=== PATIENT | female | born 1960 | race Caucasian/White ===

== ENCOUNTER → 2016-10-19 | Outpatient (CLI) | payer OTHER ==
--- NOTE | 2016-10-20 07:47 | MM ---
Reason for exam: screening (asymptomatic). Baseline mammogram. History: Patient is postmenopausal. Family history of breast cancer in paternal aunt. Physical Findings: Nurse did not find any significant physical abnormalities on exam. MG Screening Mammo w CAD Bilateral CC and MLO view(s) were taken. There are scattered fibroglandular densities. There is no discrete abnormality. These results were verbally communicated with the patient and result sheet given to the patient on 10/19/16. ASSESSMENT: Benign, BI-RAD 2 RECOMMENDATION: Routine screening mammogram of both breasts in 1 year.
== END | disposition home or self-care (01) ==
LOC: RADMAMWWP 12:51
PROVIDERS: ATTEND Internal Medicine
DX: Z12.31 Encounter for screening mammogram for malignant neoplasm of breast (principal)

== ENCOUNTER 2019-03-16 16:05 | Emergency (ER) | payer OTHER ==
[2019-03-16] MEDS ORDERED: SODIUM CHLORIDE 0.9% 1,000 ML IV STA (16:39)
--- NOTE | 2019-03-16 16:43 | ED ---
Neuro HPI - General Chief Complaint: Neuro Symptoms/Deficit Stated Complaint: High BP,Confusion,Headache Time Seen by Provider: 03/16/19 16:23 Source: patient, RN notes reviewed, old records reviewed Mode of arrival: ambulatory Limitations: no limitations - History of Present Illness Is the patient presenting with stroke symptoms?: Yes -: hour(s) Initial Comments: This is a 58-year-old female the ER for altered mental status expressive aphasia difficulty with speech. Patient also noted of high blood pressure today per family patient brought in by her family after she was sent home from work after being unable to do her daily tasks at work. 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 She presents for family's house and they noticed that her speech was not appropriate although is improving symptoms. Her house. Also elevated blood pressure and sugar blood sugar which was normal she is having occasional headache in the noticed a headache this morning. She denies any traumas recent fevers. Patient takes no medications denies drug or alcohol abuse Location: speech, other (Expressive aphasia) History of same: Yes Place: home Severity: moderate Quality: weak Improves With: none Worsens With: none On Anticoagulants: No Context: sudden onset Associated Symptoms: confusion, weakness Treatments Prior to Arrival: none - Related Data Home Medications: Home Medications Medication Instructions Recorded Confirmed Cetirizine HCl [Zyrtec] 10 mg PO DAILY 03/16/19 03/16/19 Allergies/Adverse Reactions: Allergies Allergy/AdvReac Type Severity Reaction Status Date / Time No Known Allergies Allergy Verified 03/16/19 18:14 Review of Systems ROS Statement: Those systems with pertinent positive or pertinent negative responses have been documented in the HPI. ROS Other: All systems not noted in ROS Statement are negative. General Exam Limitations: no limitations General appearance: alert, in no apparent distress Head exam: Present: atraumatic, normocephalic, normal inspection Eye exam: Present: normal appearance, PERRL, EOMI. Absent: scleral icterus, conjunctival injection, periorbital swelling ENT exam: Present: normal exam, mucous membranes moist Neck exam: Present: normal inspection. Absent: tenderness, meningismus, lymphadenopathy Respiratory exam: Present: normal lung sounds bilaterally. Absent: respiratory distress, wheezes, rales, rhonchi, stridor Cardiovascular Exam: Present: regular rate, normal rhythm, normal heart sounds. Absent: systolic murmur, diastolic murmur, rubs, gallop, clicks GI/Abdominal exam: Present: soft, normal bowel sounds. Absent: distended, tenderness, guarding, rebound, rigid Extremities exam: Present: normal inspection, full ROM, normal capillary refill. Absent: tenderness, pedal edema, joint swelling, calf tenderness Back exam: Present: normal inspection Neurological exam: Present: alert, oriented X3, CN II-XII intact Psychiatric exam: Present: normal affect, normal mood Skin exam: Present: warm, dry, intact, normal color. Absent: rash Stroke MDM - Lab Data Result diagrams: 03/16/19 16:40 03/16/19 16:40 Lab Results 03/16/19 03/16/19 03/16/19 Range/Units 16:40 16:40 16:40 WBC 15.3 H (3.8-10.6) k/uL RBC 5.08 (3.80-5.40) m/uL Hgb 15.2 (11.4-16.0) gm/dL Hct 48.0 H (34.0-46.0) % MCV 94.6 (80.0-100.0) fL MCH 29.9 (25.0-35.0) pg MCHC 31.6 (31.0-37.0) g/dL RDW 13.3 (11.5-15.5) % Plt Count 525 H (150-450) k/uL Neutrophils % 70 % Lymphocytes % 21 % Monocytes % 4 % Eosinophils % 2 % Basophils % 2 % Neutrophils # 10.7 H (1.3-7.7) k/uL Lymphocytes # 3.3 (1.0-4.8) k/uL Monocytes # 0.6 (0-1.0) k/uL Eosinophils # 0.2 (0-0.7) k/uL Basophils # 0.4 H (0-0.2) k/uL PT 9.5 (9.0-12.0) sec INR 0.9 (<1.2) APTT 26.2 (22.0-30.0) sec Sodium 142 (137-145) mmol/L Potassium 4.5 (3.5-5.1) mmol/L Chloride 105 (98-107) mmol/L Carbon Dioxide 27 (22-30) mmol/L Anion Gap 10 mmol/L BUN 9 (7-17) mg/dL Creatinine 0.83 (0.52-1.04) mg/dL Est GFR (CKD-EPI)AfAm 90 (>60 ml/min/1.73 sqM) Est GFR (CKD-EPI)NonAf 78 (>60 ml/min/1.73 sqM) Glucose 97 (74-99) mg/dL POC Glucose (mg/dL) (75-99) mg/dL POC Glu Senior Scientist ID Calcium 10.2 (8.4-10.2) mg/dL Total Bilirubin 0.3 (0.2-1.3) mg/dL AST 29 (14-36) U/L ALT 28 (9-52) U/L Alkaline Phosphatase 100 (38-126) U/L Troponin I (0.000-0.034) ng/mL Total Protein 8.1 (6.3-8.2) g/dL Albumin 4.6 (3.5-5.0) g/dL 03/16/19 03/16/19 Range/Units 16:40 16:49 WBC (3.8-10.6) k/uL RBC (3.80-5.40) m/uL Hgb (11.4-16.0) gm/dL Hct (34.0-46.0) % MCV (80.0-100.0) fL MCH (25.0-35.0) pg MCHC (31.0-37.0) g/dL RDW (11.5-15.5) % Plt Count (150-450) k/uL Neutrophils % % Lymphocytes % % Monocytes % % Eosinophils % % Basophils % % Neutrophils # (1.3-7.7) k/uL Lymphocytes # (1.0-4.8) k/uL Monocytes # (0-1.0) k/uL Eosinophils # (0-0.7) k/uL Basophils # (0-0.2) k/uL PT (9.0-12.0) sec INR (<1.2) APTT (22.0-30.0) sec Sodium (137-145) mmol/L Potassium (3.5-5.1) mmol/L Chloride (98-107) mmol/L Carbon Dioxide (22-30) mmol/L Anion Gap mmol/L BUN (7-17) mg/dL Creatinine (0.52-1.04) mg/dL Est GFR (CKD-EPI)AfAm (>60 ml/min/1.73 sqM) Est GFR (CKD-EPI)NonAf (>60 ml/min/1.73 sqM) Glucose (74-99) mg/dL POC Glucose (mg/dL) 89 (75-99) mg/dL POC Glu Senior Scientist ID Radha Ghotra Calcium (8.4-10.2) mg/dL Total Bilirubin (0.2-1.3) mg/dL AST (14-36) U/L ALT (9-52) U/L Alkaline Phosphatase (38-126) U/L Troponin I <0.012 (0.000-0.034) ng/mL Total Protein (6.3-8.2) g/dL Albumin (3.5-5.0) g/dL - NIH Stroke Scale 1a. Level of Consciousness: (0) alert 1b. LOC Questions: (0) answers correctly 1c. LOC Commands: (0) performs tasks correctly 2. Best Gaze: (0) normal 3. Visual: (0) no visual loss 4. Facial Palsy: (0) normal symmetrical movement 5a. Motor Arm Left: (0) no drift 5b. Motor Arm Right: (0) no drift 6a. Motor Leg Left: (0) no drift 6b. Motor Leg Right: (0) no drift 7. Limb Ataxia: (0) absent 8. Sensory: (0) normal 9. Best Language: (1) mild/moderate aphasia 10. Dysarthria: (1) mild/moderate dysarthria 11. Extinction/Inattention: (0) no abnormality - Thrombolytic Inclusion/Exclusion Thrombolytic Exclusion Criteria: Symptom Onset > 4.5 Hours Thrombolytic Inclusion Criteria: Glucose of 50-400mg/dl - Medical Decision Making 58 female the ER for evaluation she does have positive CVA. Patient will be admitted for evaluation and treatment by neurology - Radiology Data Radiology results: report reviewed (CT brain does show some evidence of a CVA left frontal CTA does show some hemodynamic stenosis 80%), image reviewed - EKG Data -: EKG Interpreted by Me (EKG shows sinus rhythm rate of 73, FL 1:30, QRS 80, QTC 429) Past Medical History Past Medical History: No Reported History History of Any Multi-Drug Resistant Organisms: None Reported Past Surgical History: No Surgical Hx Reported Past Psychological History: No Psychological Hx Reported Smoking Status: Current some day smoker Past Alcohol Use History: Occasional Past Drug Use History: None Reported Course Vital Signs 03/16/19 03/16/19 03/16/19 16:18 18:33 18:42 Temperature 97.9 F Pulse Rate 85 71 68 Respiratory 20 16 16 Rate Blood Pressure 191/87 161/74 165/77 O2 Sat by Pulse 98 97 97 Oximetry - Reevaluation(s) Reevaluation #1: 03/16/19 18:24 medical record is reviewed Reevaluation #2: 03/16/19 18:24 patient unable to have accurate known onset and no TPA candidate secondary to onset as well as NIH of 0 Reevaluation #3: 03/16/19 20:[address] Yepez he will accept patient transfer at [facility] Critical Care Time Critical Care Time: Yes Total Critical Care Time: 31 Disposition Clinical Impression: Cerebrovascular accident (CVA) Disposition: OTHER INSTITUTION NOT DEFINED Condition: Fair Is patient prescribed a controlled substance at d/c from ED?: No Referrals: Kenyon Hoffmann MD [Primary Care Provider] - 1-2 days - Out of Hospital Transfer - Req. Specs Out of Hospital Transfer - Requested Specifics: Other Emergency Center ([facility])
[2019-03-16 16:51] LABS: Glucose,Whole Blood 89 mg/dL (75-99)
--- NOTE | 2019-03-16 17:12 | CT ---
EXAMINATION TYPE: CT brain wo con for TPA DATE OF EXAM: 03/16/2019 COMPARISON: None HISTORY: Confusion. CT DLP: mGycm Automated exposure control for dose reduction was used. FINDINGS: Ventricles of normal size. There is no mass effect nor midline shift. There is no sign of intracrania l hemorrhage. The calvarium is intact. There is a subtle 2 cm area of cortical hypodensity left posterior frontal lobe. IMPRESSION: HYPODENSE LEFT FRONTAL LOBE CORTICAL AREA COULD BE AN ACUTE INFARCT.
[2019-03-16 17:28] LABS: Basophils # (A) 0.4 k/uL (0-0.2); Basophils % (A) 2 %; Eosinophils # (A) 0.2 k/uL (0-0.7); Eosinophils % (A) 2 %; HGB 15.2 gm/dL (11.4-16.0); Lymphocytes # (A) 3.3 k/uL (1.0-4.8); Lymphocytes % (A) 21 %; MCH 29.9 pg (25.0-35.0); MCHC 31.6 g/dL (31.0-37.0); MCV 94.6 fL (80.0-100.0); Mean Platelet Volume 6.8; Monocytes # (A) 0.6 k/uL (0-1.0); Monocytes % (A) 4 %; Neutrophils # (A) 10.7 k/uL (1.3-7.7); Neutrophils % (A) 70 %; Platelet Count 525 k/uL (150-450); RBC 5.08 m/uL (3.80-5.40); RDW 13.3 % (11.5-15.5); WBC 15.3 k/uL (3.8-10.6)
[2019-03-16 17:33] LABS: Albumin 4.6 g/dL (3.5-5.0); Calcium 10.2 mg/dL (8.4-10.2); Potassium 4.5 mmol/L (3.5-5.1); Total Bilirubin 0.3 mg/dL (0.2-1.3); Total Protein 8.1 g/dL (6.3-8.2)
--- NOTE | 2019-03-16 17:39 | CT ---
EXAMINATION TYPE: CT angio head neck DATE OF EXAM: 03/16/2019 HISTORY: Confusion COMPARISON: None CT DLP: 1570.5 mGycm. Automated Exposure Control for Dose Reduction was Utilized. TECHNIQUE: CTA scan of the neck is performed with IV Contrast, patient injected with 65 mL of Isovue 370, axial images are obtained, coronal and sagittal reformatted images are reviewed. Three-D recons tructed images are created on an independent workstation and reviewed. FINDINGS: There is normal branching pattern of the great vessels on the aortic arch. There is bilateral arteria l flow in the subclavian arteries. There is bilateral arterial flow in the vertebral arteries which a re fairly symmetric. There is arterial flow in the common internal and external carotid arteries bila terally. There is wide patency of the right carotid artery bifurcation. On the left side there is approximate 80% stenosis of the origin of the left internal carotid artery. There is no evidence of carotid or vertebral artery aneurysm or dissection. There is arterial flow in the vertebrobasilar artery system. There is arterial flow in the anterior m iddle and posterior cerebral arteries. I see no aneurysm or neovascularity. There is no mass effect. There is normal contrast opacification of the venous sinuses. IMPRESSION: There is approximate 80% stenosis at the origin of the left internal carotid artery. There is hemodyn amic stenosis. No arterial dissection. No intracranial angiographic abnormality.
[2019-03-16 17:43] LABS: INR 0.9 (<1.2); Partial Thromboplastin Time 26.2 sec (22.0-30.0); Prothrombin Time 9.5 sec (9.0-12.0)
[2019-03-16] MEDS ORDERED: LABETALOL 5 MG/ML VIAL MDV IVP STA (18:19)
[2019-03-16] MEDS ORDERED: TICAGRELOR 90 MG TAB PO STA (20:04)
[2019-03-16 20:21] VITALS: BP 147/79; PULSE 66; RESP 18
[2019-03-16 22:15] VITALS: TEMP 98.2
== END 2019-03-16 21:26 | disposition other institution (70) ==
LOC: EC 16:05
DX: I63.9 Cerebral infarction, unspecified (principal); R29.702 NIHSS score 2; F17.200 Nicotine dependence, unspecified, uncomplicated; Z79.899 Other long term (current) drug therapy
CPT/HCPCS: 36415; 93005; 80053; 84484; 85025; 85610; 85730; 70496; 70450; 70498; 99291; 96360; 96361 ×2; Q9967

== ENCOUNTER → 2020-01-16 | Outpatient (CLI) | payer OTHER ==
--- NOTE | 2020-01-18 09:25 | MM ---
Reason for exam: screening (asymptomatic). Last mammogram was performed 3 years and 3 months ago. History: Patient is postmenopausal. Family history of breast cancer in 2 paternal aunts. Physical Findings: A clinical breast exam by your physician is recommended on an annual basis and results should be correlated with mammographic findings. MG 3D Screening Mammo W/Cad Bilateral CC and MLO view(s) were taken. Prior study comparison: October 19, 2016, bilateral MG screening mammo w CAD. There are scattered fibroglandular densities. No significant changes when compared with prior studies. ASSESSMENT: Negative, BI-RAD 1 RECOMMENDATION: Routine screening mammogram of both breasts in 1 year.
== END | disposition home or self-care (01) ==
LOC: RADMAMWWP 14:50
PROVIDERS: ATTEND Family Medicine
DX: Z12.31 Encounter for screening mammogram for malignant neoplasm of breast (principal)
CPT/HCPCS: 77063; 77067

== ENCOUNTER → 2021-09-08 | Outpatient (CLI) | payer OTHER ==
--- NOTE | 2021-09-09 08:14 | MM ---
Reason for exam: screening (asymptomatic). Last mammogram was performed 1 year and 8 months ago. History: Patient is postmenopausal. Family history of breast cancer in 2 paternal aunts. Physical Findings: A clinical breast exam by your physician is recommended on an annual basis and results should be correlated with mammographic findings. MG Screening Mammo w CAD Bilateral CC and MLO view(s) were taken. Prior study comparison: January 16, 2020, bilateral MG 3d screening mammo w/cad. October 19, 2016, bilateral MG screening mammo w CAD. There are scattered fibroglandular densities. There is no discrete abnormality. ASSESSMENT: Negative, BI-RAD 1 RECOMMENDATION: Routine screening mammogram of both breasts in 1 year.
== END | disposition home or self-care (01) ==
LOC: RADMAMWWP 10:14
PROVIDERS: ATTEND Internal Medicine Geriatric Medicine
DX: Z12.31 Encounter for screening mammogram for malignant neoplasm of breast (principal); Z78.0 Asymptomatic menopausal state; Z80.3 Family history of malignant neoplasm of breast
CPT/HCPCS: 77067

== ENCOUNTER → 2022-10-02 | Outpatient (CLI) | payer OTHER ==
--- NOTE | 2022-10-02 12:59 | US ---
EXAMINATION TYPE: US carotid duplex BILAT DATE OF EXAM: 10/02/2022 COMPARISON: 03/16/19 CTA neck CLINICAL INDICATION: Female, 62 years old with history of I65.22 OCCLUSION AND STENOSIS OF LEFT CAROT ID FELICIA; pt. complains of more frequent headaches, stent put into lt prox ICA TECHNIQUE: Carotid duplex ultrasound examination. Indirect Doppler criteria was utilized. FINDINGS: EXAM MEASUREMENTS: RIGHT: Peak Systolic Velocity (PSV) cm/sec ----- Right CCA: 70.6 ----- Right ICA: 92.6 ----- Right ECA: 90.1 ICA/CCA ratio: 1.3 RIGHT: End Diastole cm/sec ----- Right CCA: 21.2 ----- Right ICA: 34.4 ----- Right ECA: 22.8 LEFT: Peak Systolic Velocity (PSV) cm/sec ----- Left CCA: 63.3 ----- Left ICA: 72.9 ----- Left ECA: 386.8 ICA/CCA ratio: 1.2 LEFT: End Diastole cm/sec ----- Left CCA: 27.0 ----- Left ICA: 31.9 ----- Left ECA: 83.9 VERTEBRALS (direction of flow): Right Vertebral: Antegrade Left Vertebral: Antegrade Rhythm: Normal FLOOR ASSEMBLER NOTES: No significant stenosis seen, proc Lt ECA appears stenotic with high velocities, s tent noted in place at Lt prox ICA Interval treatment of the left proximal internal carotid artery. IMPRESSION: No hemodynamically significant stenosis in either internal carotid artery on current aubrey dy. Criteria for Assigning % of Stenosis / Diameter reduction (Estimation based on the indirect measurements of the internal carotid artery velocities (ICA PSV). 1. Normal (no stenosis)=ICA PSV < 125 cm/s: ratio < 2.0: ICA EDV<40 cm/s. 2. Less than 50% stenosis=ICA PSV < 125 cm/s: ratio < 2.0: ICA EDV<40 cm/s. 3. 50 to 69% stenosis=ICA PSV of 125 to 230 cm/s: ration 2.0 ? 4.0: ICA EDV 40-100 cm/s. 4. Greater than 70% stenosis to near occlusion= ICA PSV > 230 cm/s: ratio > 4.0: ICA EDV > 100 cm/s. 5. Near occlusion= ICA PSV velocities may be low or undetectable: variable ratio and ICA EDV. 6. Total occlusion=unable to detect flow.
== END | disposition home or self-care (01) ==
LOC: RADUSWWP 10:53
PROVIDERS: ATTEND Internal Medicine Geriatric Medicine
DX: I65.22 Occlusion and stenosis of left carotid artery (principal)
CPT/HCPCS: 93880

== ENCOUNTER → 2023-02-18 | Outpatient (CLI) | payer OTHER ==
--- NOTE | 2023-02-19 12:34 | MM ---
Reason for Exam: Screening (asymptomatic). Last mammogram was performed 1 year(s) and 5 month(s) ago. Patient History: Menarche at age 12. First Full-Term at age 20. Hysterectomy at age 34. Postmenopausal. Paternal aunt had breast cancer. Paternal aunt had breast cancer. Paternal aunt had breast cancer. Paternal aunt had breast cancer. Maternal cousin had breast cancer. Maternal cousin had breast cancer. Risk Values: Annika 5 year model risk: 1.4%. NCI Lifetime model risk: 6.0%. Prior Study Comparison: 10/19/2016 Bilateral Screening Mammogram, [facility]. 01/16/2020 Bilateral Screening Mammogram, [facility]. 09/08/2021 Bilateral Screening Mammogram, [facility]. Tissue Density: There are scattered fibroglandular densities. Findings: Analyzed By CAD. There is no suspicious group of microcalcifications or new suspicious mass in either breast. Overall Assessment: Negative, BI-RAD 1 Management: Screening Mammogram of both breasts in 1 year. . Patient should continue monthly self-breast exams. A clinical breast exam by your physician is recommended on an annual basis. This exam should not preclude additional follow-up of suspicious palpable abnormalities. Note on Annika scores and lifetime risk: 1. A Annika score greater than 3% is considered moderate risk. If this is the case, consider specialist referral to assess eligibility for a risk reducing agent. 2. If overall lifetime risk for the development of breast cancer is 20% or higher, the patient may qualify for future screening with alternating mammogram and breast MRI. Electronically signed and approved by: Rashid Pérez M.D. Radiologis
== END | disposition home or self-care (01) ==
LOC: RADMAMWWP 15:53
PROVIDERS: ATTEND Internal Medicine Geriatric Medicine
DX: Z12.31 Encounter for screening mammogram for malignant neoplasm of breast (principal); Z78.0 Asymptomatic menopausal state; Z80.3 Family history of malignant neoplasm of breast
CPT/HCPCS: 77067